=== PATIENT | female | born 1990 | race Hispanic/Latino ===

== ENCOUNTER 2018-07-13 00:41 | Emergency (ER) | payer SELFPAY ==
[~2018-07-13] VITALS: Ht 157.5 cm; Wt 117.9 kg
== END 2018-07-13 03:36 | disposition home or self-care (01) ==
LOC: ED 00:41
DX: R11.10 Vomiting, unspecified (principal); R19.7 Diarrhea, unspecified
CPT/HCPCS: 80053; 81001; 83690; 84703; 85025; 96361; 96374; 96375; 99284-25; J2405; J3010; J7030